=== PATIENT | female | born 1995 | race Caucasian/White ===

== ENCOUNTER 2019-09-28 14:49 | Outpatient (CLI) | payer BC, SELFPAY ==
--- NOTE | ~2019-09-28 | US_ITS ---
EXAMINATION: US OB follow up DATE: 09/28/2019 15:21 INDICATION: with uncertain dates. TECHNIQUE: Real-time ultrasound of the pelvis was performed. COMPARISON: None. FINDINGS: There is a single living fetus in breech presentation. The placenta is anterior, 6.6 cm from the cer vix. heart rate is 141 beats per minute (bpm). The amniotic fluid volume is subjectively normal . The following biometric data were obtained: Biparietal diameter (BPD): 4.5 cm; head circumference (HC): 16.3 cm; abdominal circumference (AC): 14 .0 cm; femur length (FL): 2.9 cm. These measurements are concordant. Estimated weight is 277 g +/- 42 g. As single measurements, these parameters are each equal to the following estimated gestational ages: BPD: 19 weeks 4 days. HC: 19 weeks 0 days. AC: 19 weeks 2 days. FL: 18 weeks 6 days. estimated gestational age based solely on measurements from this exam is 19 weeks 1 days +/- 1 weeks 2 days. IMPRESSION: 1. Single living fetus in breech presentation. 2. Estimated weight is 277 g +/- 42 g with estimated date of delivery of 02/21/2020. Reviewed, dictated and finalized at location A.
== END 2019-09-28 14:50 | disposition home or self-care (01) ==
PROVIDERS: Visit Provider Student in an Organized Health Care Education/Training Program
DX: N91.2 Amenorrhea, unspecified (principal); Z33.1 Pregnant state, incidental
CPT/HCPCS: 76816

== ENCOUNTER 2019-09-29 15:48 | Outpatient (CLI) | payer BC, SELFPAY ==
[2019-09-29 16:11] LABS: Basophils Percent Auto 0.4 % (0.2-1.2); Eosinophils Absolute Auto 0.2 K/mm3 (0-0.3); Eosinophils Percent Auto 1.8 % (0-4.4); Hematocrit 37.6 % (37.0-47.0); Hemoglobin 12.7 g/dL (12.0-15.0); Immature Granulocyte Absolute 0.09 K/mm3 (0.00-0.031); Immature Granulocyte Percent A 0.8 % (0-0.5); Lymphocytes Absolute Auto 2.14 K/mm3 (0.9-3.2); Lymphocytes Percent Auto 19.9 % (18.3-44.2); Mean Corpuscular HGB Conc 33.8 g/dl (32-36); Mean Corpuscular Hemoglobin 29.8 pg (26-34); Mean Corpuscular Volume 88.3 fl (80-100); Mean Platelet Volume 10.8 fl (7.4-10.4); Monocytes Absolute Auto 0.5 K/mm3 (0.1-0.6); Monocytes Percent Auto 4.8 % (2.6-8.5); Neutrophils Absolute Auto 7.8 K/mm3 (1.3-6.7); Neutrophils Percent Auto 72.3 % (45.5-73.1); Platelet Count Result 202 k/mm3 (150-375); Red Blood Count 4.26 M/mm3 (4.2-5.4); Red Cell Distribution Width 12.8 % (11.5-14.5); White Blood Count 10.8 K/mm3 (4.5-10.0)
[2019-09-29 16:13] LABS: Add Urine Microscopic? NO; Appearance Urine Clear (Clear); Bilirubin Urine Negative (Negative); Blood Urine Negative (Negative); Color Urine Colorless (Yellow); Glucose Urine UA Negative (Negative); Ketones Urine Negative (Negative); Leukocyte Esterase Ur Negative LEU/UL (NEGATIVE); Nitrate Urine Negative (Negative); Protein Urine Negative (Negative); Urobilinogen Urine Negative mg/dL (<2.0)
[2019-09-29 16:15] LABS: Specific Grav Ur 1.002 (1.001-1.035)
[2019-09-29 17:34] LABS: HIV 1/2 Ab P24 Ag Result Negative (Negative); Hepatitis C Virus Antibody Negative (Negative)
[2019-09-29 18:02] LABS: Rubella IgG Antibody 15.9 IU/ML
[2019-09-29 18:06] LABS: Vitamin D 25 Hydroxy 53.1 ng/mL
[2019-09-30 08:42] LABS: Rapid Plasma Reagin Non-Reactive (NonReactive)
[2019-09-30 12:25] LABS: Hepatitis B Surface Antigen Negative (Negative)
[2019-10-04 19:40] LABS: Hematocrit 38.4 % (35.0-45.0); MCH 30.4 pg (27.0-33.0); MCV 89.7 FL (80.0-100.0); RDW 13.3 % (11.0-15.0); Red Blood Cell Count 4.28 Mill/uL (3.80-5.10)
== END 2019-09-29 15:49 | disposition home or self-care (01) ==
PROVIDERS: PCP Student in an Organized Health Care Education/Training Program; Visit Provider Student in an Organized Health Care Education/Training Program
DX: Z34.90 Encounter for supervision of normal pregnancy, unspecified, unspecified trimester (principal)
CPT/HCPCS: 36415; 81003; 81220; 82306; 83021; 84443; 85025; 86592; 86703; 86762; 86787; 86803; 87086; 87340; G0432

== ENCOUNTER 2019-12-15 14:34 | Outpatient (CLI) | payer BC, SELFPAY ==
[2019-12-15 15:45] LABS: Basophils Absolute Auto 0.1 K/mm3 (0.0-0.1); Basophils Percent Auto 0.4 % (0.2-1.2); Eosinophils Absolute Auto 0.2 K/mm3 (0-0.3); Eosinophils Percent Auto 1.5 % (0-4.4); Hematocrit 36.1 % (37.0-47.0); Hemoglobin 12.3 g/dL (12.0-15.0); Immature Granulocyte Absolute 0.25 K/mm3 (0.00-0.031); Immature Granulocyte Percent A 2.2 % (0-0.5); Lymphocytes Absolute Auto 1.85 K/mm3 (0.9-3.2); Lymphocytes Percent Auto 16.4 % (18.3-44.2); Mean Corpuscular HGB Conc 34.1 g/dl (32-36); Mean Corpuscular Hemoglobin 30.5 pg (26-34); Mean Corpuscular Volume 89.6 fl (80-100); Monocytes Absolute Auto 0.5 K/mm3 (0.1-0.6); Monocytes Percent Auto 4.7 % (2.6-8.5); Neutrophils Absolute Auto 8.4 K/mm3 (1.3-6.7); Neutrophils Percent Auto 74.8 % (45.5-73.1); Platelet Count Result 196 k/mm3 (150-375); Red Blood Count 4.03 M/mm3 (4.2-5.4); Red Cell Distribution Width 13.2 % (11.5-14.5); White Blood Count 11.3 K/mm3 (4.5-10.0)
[2019-12-15 15:56] LABS: Glucose 1 Hour PP 50gm Dose 166 mg/dL
== END 2019-12-15 14:35 | disposition home or self-care (01) ==
PROVIDERS: PCP Student in an Organized Health Care Education/Training Program; Visit Provider Student in an Organized Health Care Education/Training Program
DX: Z34.02 Encounter for supervision of normal first pregnancy, second trimester (principal)
CPT/HCPCS: 36415; 82947; 85025; 86850; 86900; 86901

== ENCOUNTER 2019-12-22 08:57 | Outpatient (CLI) | payer BC, SELFPAY ==
[2019-12-22 09:57] LABS: Glucose Fasting Gestational 78 mg/dL (>/=95)
[2019-12-22 11:23] LABS: Glucose 1 Hour Gest 135 mg/dL (>/=180)
[2019-12-22 12:31] LABS: Glucose 2 Hour Gest 148 mg/dL (>/= 155)
[2019-12-22 13:46] LABS: Glucose 3 Hour Gest 73 mg/dL (>/=140)
== END 2019-12-22 08:58 | disposition home or self-care (01) ==
LOC: ANHLAB 08:58
PROVIDERS: PCP Student in an Organized Health Care Education/Training Program; Visit Provider Student in an Organized Health Care Education/Training Program
DX: R73.09 Other abnormal glucose (principal)
CPT/HCPCS: 36415; 82951; 82952

== ENCOUNTER 2020-01-06 12:57 | Outpatient (CLI) | payer BC, SELFPAY ==
[2020-01-06 13:21] LABS: Basophils Absolute Auto 0.1 K/mm3 (0.0-0.1); Basophils Percent Auto 0.5 % (0.2-1.2); Eosinophils Absolute Auto 0.2 K/mm3 (0-0.3); Eosinophils Percent Auto 1.6 % (0-4.4); Hematocrit 37.6 % (37.0-47.0); Immature Granulocyte Absolute 0.28 K/mm3 (0.00-0.031); Immature Granulocyte Percent A 2.3 % (0-0.5); Lymphocytes Absolute Auto 2.16 K/mm3 (0.9-3.2); Lymphocytes Percent Auto 17.6 % (18.3-44.2); Mean Corpuscular HGB Conc 34.6 g/dl (32-36); Mean Corpuscular Hemoglobin 30.6 pg (26-34); Mean Corpuscular Volume 88.5 fl (80-100); Mean Platelet Volume 10.4 fl (7.4-10.4); Monocytes Absolute Auto 0.7 K/mm3 (0.1-0.6); Monocytes Percent Auto 5.3 % (2.6-8.5); Neutrophils Absolute Auto 8.9 K/mm3 (1.3-6.7); Neutrophils Percent Auto 72.7 % (45.5-73.1); Platelet Count Result 188 k/mm3 (150-375); Red Blood Count 4.25 M/mm3 (4.2-5.4); Red Cell Distribution Width 13.1 % (11.5-14.5); White Blood Count 12.3 K/mm3 (4.5-10.0)
[2020-01-06 14:11] LABS: HIV 1/2 Ab P24 Ag Result Negative (Negative)
[2020-01-09 07:20] LABS: Rapid Plasma Reagin Non-Reactive (NonReactive)
== END 2020-01-06 12:58 | disposition home or self-care (01) ==
PROVIDERS: PCP Student in an Organized Health Care Education/Training Program; Visit Provider Student in an Organized Health Care Education/Training Program
DX: Z34.90 Encounter for supervision of normal pregnancy, unspecified, unspecified trimester (principal)
CPT/HCPCS: 36415; 85025; 86592; 86703; G0432

== ENCOUNTER 2020-02-24 12:16 | Outpatient (RCR) | payer BC, SELFPAY ==
[2020-02-21 14:33] VITALS: BP 118/73; PULSE 78
--- NOTE | 2020-02-21 15:36 | PC.NURSE ---
Dr. Mendoza notified of Ultrasound results and NST.
[2020-02-22 15:14] VITALS: BP 121/86; PULSE 84
--- NOTE | ~2020-02-24 | US_ITS ---
EXAMINATION: US OB follow up w BPP DATE: 02/21/2020 15:07 INDICATION: Postdates. TECHNIQUE: Real-time pelvic ultrasound was performed. COMPARISON: Ultrasound 09/28/2019 FINDINGS: There is a single living fetus in vertex presentation. The placenta is anterior. heart rate is 126 beats per minute (bpm). The amniotic fluid index was 14.5 cm, which is normal. The following biometric data were obtained: Head circumference (HC): 34.8 cm; abdominal circumference (AC): 35.5 cm; femur length (FL): 7.7 cm. These measurements are concordant. Estimated weight is 3802 g +/- 570 g, which correlates with 66th percentile when 02/21/20 is us ed as estimated date of delivery. As single measurements, these parameters are each equal to the following estimated gestational ages: HC: 40 weeks 3 days. AC: 39 weeks 3 days. FL: 39 weeks 4 days. estimated gestational age based solely on measurements from this exam is 39 weeks 6 days +/- 2 weeks 6 days. Biophysical profile performed by the technologist: breathing (30 sec sustained breathing in 30 minutes): 2 out of 2 movement (3 gross body movements in 30 minutes): 2 out of 2 tone (one episode of andjacw-ofrrjtdql-scxyycz limb movement): 2 out of 2 Amniotic fluid pocket (2 cm): 2 out of 2 Total score: 8 out of 8 IMPRESSION: 1. Single living fetus in vertex presentation. 2. Estimated weight is 3802 g +/- 570 g, which correlates with 66th percentile when 02/21/20 i s used as estimated date of delivery. This date was set by ultrasound on 09/28/2019. 3. Biophysical profile 8 out of 8. Reviewed, dictated and finalized at location A. IMPRESSION: 1. Single living fetus in vertex presentation. 2. Estimated weight is 3802 g +/- 570 g, which correlates with 66th perc entile when 02/21/20 is used as estimated date of delivery. This date was set b y ultrasound on 09/28/2019. 3. Biophysical profile 8 out of 8.
[2020-02-24 12:43] VITALS: BP 119/77
== END 2020-02-29 12:54 | disposition home or self-care (01) ==
LOC: ANHOBOP 12:16
PROVIDERS: Visit Provider Student in an Organized Health Care Education/Training Program
DX: O48.0 Post-term pregnancy (principal); Z3A.40 40 weeks gestation of pregnancy
CPT/HCPCS: 59025; 76816; 76819

== ENCOUNTER 2020-02-27 15:47 | Inpatient (IN) | payer BC, SELFPAY ==
[2020-02-27] VITALS (7 sets, daily range): BP systolic 109–138; BP diastolic 65–91; PULSE 67–80; TEMP 36.6–37; BMI 31.1
--- NOTE | 2020-02-27 15:47 | LDADM ---
This patient, Geovanna Long, was admitted to Labor/Delivery/Recovery 107 on 02/27/20 at 15:47. Plans for labor, pain management and were discussed with patient. Patient/family oriented to hospital policies and general routines including ID bracelet, bed and alarms, visiting hours, pain management, procedures, bathroom and other care routines, personal items, smoking policy, room service/diet and guest tray routines, infant security routines, and visiting hours. Patient/Family are encouraged to report perceived risks to care and to ask questions if they do not understand what they are told or what they should do. See OBIX for further documentation.
[2020-02-27 16:44] LABS: Basophils Absolute Auto 0.1 K/mm3 (0.0-0.1); Basophils Percent Auto 0.5 % (0.2-1.2); Eosinophils Absolute Auto 0.2 K/mm3 (0-0.3); Eosinophils Percent Auto 1.5 % (0-4.4); Hematocrit 39.5 % (37.0-47.0); Hemoglobin 13.4 g/dL (12.0-15.0); Immature Granulocyte Absolute 0.23 K/mm3 (0.00-0.031); Immature Granulocyte Percent A 1.8 % (0-0.5); Lymphocytes Percent Auto 14.5 % (18.3-44.2); Mean Corpuscular HGB Conc 33.9 g/dl (32-36); Mean Corpuscular Hemoglobin 30.5 pg (26-34); Mean Corpuscular Volume 89.8 fl (80-100); Mean Platelet Volume 11.4 fl (7.4-10.4); Monocytes Absolute Auto 0.9 K/mm3 (0.1-0.6); Monocytes Percent Auto 7.2 % (2.6-8.5); Neutrophils Absolute Auto 9.3 K/mm3 (1.3-6.7); Neutrophils Percent Auto 74.5 % (45.5-73.1); Platelet Count Result 186 k/mm3 (150-375); Red Cell Distribution Width 13.4 % (11.5-14.5); White Blood Count 12.4 K/mm3 (4.5-10.0)
[2020-02-27] MEDS: DINOPROSTONE 10 MG VAG INSERT VAGINAL (16:45)
[2020-02-28] VITALS (102 sets, daily range): BP systolic 107–145; BP diastolic 68–105; PULSE 59–104; RESP 16–20; TEMP 36.8–37.4; O2SAT 96–100
[2020-02-28] MEDS: CALCIUM CARBONATE (TUMS) 500 MG (200 MG ELEMENTAL) PO (05:04)
[2020-02-28] MEDS: LACTATED RINGERS 1,000 ML 125 ML IV CONT ×3 (05:05→11:23)
[2020-02-28] MEDS: OXYTOCIN 30 UNITS/NS 500 ML 30 UNITS/500 ML BAG 6 UNITS IV CONT (05:05)
[2020-02-28 06:59] LABS: Rapid Plasma Reagin Non-Reactive (NonReactive)
--- NOTE | 2020-02-28 08:38 | WPDANESEPP ---
Anes - Eval Pre Procedure Procedure: Labor Epidural Date/Time: 02/28/20 08:38 Surgeon: Reji Preop Diagnosis: Labor Pain Pre Op Diagnosis: iol Patient Data Age: 24 Gender: F Height: 5 ft 8 in Weight: 93 kg Last Vital Signs Temp 36.9 C 02/28/20 06:31 Pulse 93 02/28/20 08:36 BP 134/80 02/28/20 08:36 Pulse Ox 98 02/28/20 08:36 Allergies Allergy/AdvReac Type Severity Reaction Status Date / Time No Known Allergies Allergy Verified 02/22/20 14:01 Home Medications Medication Instructions Recorded Confirmed Type calcium citrate 250 mg PO DAILY 09/20/19 02/27/20 History vits 75-iron 28 mg-folic 1 pkg PO DAILY 09/20/19 02/27/20 History acid 800 mcg-omega-3 oral combo pack Laboratory Tests 02/27/20 02/27/20 02/27/20 16:30 16:30 16:30 WBC 12.4 K/mm3 H K/mm3 (4.5-10.0) RBC 4.40 M/mm3 M/mm3 (4.2-5.4) Hgb 13.4 g/dL g/dL (12.0-15.0) Hct 39.5 % % (37.0-47.0) MCV 89.8 fl fl (80-100) MCH 30.5 pg pg (26-34) MCHC 33.9 g/dl g/dl (32-36) RDW 13.4 % % (11.5-14.5) Plt Count 186 k/mm3 k/mm3 (150-375) MPV 11.4 fl H fl (7.4-10.4) Immature Gran % (Auto) 1.8 % H % (0-0.5) Neut % (Auto) 74.5 % H % (45.5-73.1) Lymph % (Auto) 14.5 % L % (18.3-44.2) Ford % (Auto) 7.2 % % (2.6-8.5) Eos % (Auto) 1.5 % % (0-4.4) Baso % (Auto) 0.5 % % (0.2-1.2) Lymph # (Auto) 1.80 K/mm3 K/mm3 (0.9-3.2) Ford # (Auto) 0.9 K/mm3 H K/mm3 (0.1-0.6) Eos # (Auto) 0.2 K/mm3 K/mm3 (0-0.3) Baso # (Auto) 0.1 K/mm3 K/mm3 (0.0-0.1) Abs Immat Gran (auto) 0.23 K/mm3 H K/mm3 (0.00-0.031) Absolute Neuts (auto) 9.3 K/mm3 H K/mm3 (1.3-6.7) Absolute Nucleated RBC 0.0 K/mm3 K/mm3 (0.0-0.012) Nucleated RBC % 0.0 % % (0.0-0.2) RPR Non-reactive (NonReactive) Blood Type A Positive Antibody Screen Negative : gestational age (RASHID 02/21/20) Patient hx anesthesia problems: none Family hx anesthesia problems: none PMFSH Past Medical History Medical History Broken humerus Surgical History Surgical History [place] teeth removed Family History Family History Mother Breast cancer Grandparent Breast cancer Acute myocardial infarction Social History Social History Smoking status: Never smoker Second hand tobacco smoke exposure: No Alcohol intake: never Substance use: never Gender identity (if verbalized by the patient): Female Spiritual care concerns: No Exam Day of Procedure 02/28/20 08:38 Patient weight: normal Heart: regular rate and rhythm Lungs: normal air movement Airway: Mallampati scale class II Neurological: alert and oriented
--- NOTE | 2020-02-28 08:52 | PM.IMHP ---
H&P: HPI History of Present Illness Date/Time: 02/28/20 08:52 Patient is a 24-year-old last menstrual period April 27, 2019 currently 40 weeks 6 days gestation with an estimated due date of 02/21/2020. Patient presents for scheduled elective induction of labor at term. Patient is dated by an ultrasound on 09/29/2027 at 19 weeks gestation. patient reports feeling well. Reports occasional contractions. Denies any vaginal bleeding or leakage of fluid. Reports good movement. Chief complaint: iol Narrative: Geovanna Long is a 24 year old female Review of Systems Review of Systems: All systems reviewed & are unremarkable except as noted in HPI and below Constitutional: Constitutional: Reports as per HPI, Reports no additional constitutional complaints, Denies chills, Denies fever(s), Denies headache(s) and Denies night sweats Eyes: Eyes: Reports as per HPI and Reports no additional eye complaints ENT: Reports system reviewed and no additional complaints, except as documented, Reports as per HPI, Reports Normal hearing present and Denies headache(s) Cardiovascular: Cardiovascular: Reports as per HPI, Reports no additional cardiovascular complaints, Denies chest pain and Denies dyspnea Respiratory: Respiratory: Reports as per HPI, Reports no additional respiratory complaints, Denies cough and Denies dyspnea Gastrointestinal: Gastrointestinal: Reports as per HPI, Reports no additional gastrointestinal complaints, Denies abdominal pain, Denies change in bowel habits, Denies change in stool character, Denies nausea and Denies vomiting Genitourinary: Genitourinary: Reports no additional female genitourinary complaints, Reports as per HPI, Denies abnormal vaginal bleeding, Denies genital lesions, Denies hot flashes, Denies dyspareunia, Denies pelvic pain, Denies sexual dysfunction, Denies urinary incontinence, Denies vaginal discharge, Denies vaginal dryness and Denies vaginal odor Musculoskeletal: Musculoskeletal: Reports no additional musculoskeletal complaints and Reports as per HPI Integumentary/Breasts: Skin/Breast: Reports system reviewed and no additional complaints, except as docu, Reports as per HPI, Denies breast pain and Denies nipple discharge Neurologic: Reports system reviewed and no additional complaints, except as documented, Reports as per HPI, Reports Normal hearing present and Denies headache(s) Psychiatric: Psychiatric: Reports no additional psychiatric complaints, Reports as per HPI, Denies anxiety and Denies depression Endocrine: Endocrine: Reports no additional endocrine complaints and Reports as per HPI Hematologic/Lymphatic: Hematologic/Lymphatic: Reports no additional hematologic/lymphatic complaints and Reports as per HPI Allergic/Immunologic: Allergic/Immunologic: Reports no additional allergic/immunologic complaints and Reports as per HPI PMFSH Past Medical History Medical History (Updated 02/28/20 @ 09:01 by Jackie Mendoza MD) Broken humerus Surgical History Surgical History [place] teeth removed Family History Family History Mother Breast cancer Grandparent Breast cancer Acute myocardial infarction Social History Social History Smoking status: Never smoker Second hand tobacco smoke exposure: No Alcohol intake: never Substance use: never Gender identity (if verbalized by the patient): Female Spiritual care concerns: No Meds Home Medications and Allergies Home Medications Medication Instructions Recorded Confirmed Type calcium citrate 250 mg PO DAILY 09/20/19 02/27/20 History vits 75-iron 28 mg-folic 1 pkg PO DAILY 09/20/19 02/27/20 History acid 800 mcg-omega-3 oral combo pack Allergies Allergy/AdvReac Type Severity Reaction Status Date / Time No Known Allergies Allergy Verifi
--- NOTE | 2020-02-28 09:02 | WPDHPUPDATE1 ---
History and Physical Update Update Date/Time: 02/28/20 09:02 History and Physical has been reviewed, including an updated exam of the patient. There are NO changes in the patient's condition. Risks, benefits, and alternatives have been discussed and questions answered. Patient agrees to proceed with procedure.
[2020-02-28] MEDS: OXYTOCIN 30 UNITS/NS 500 ML 30 UNITS/500 ML BAG 125 UNITS IV CONT (13:45)
--- NOTE | 2020-02-28 15:22 | PM.OBPRVD ---
OB - Delivery Note Procedure Delivery date: 02/28/20 Procedure: The patient is a 24-year-old now who presented to Labor and delivery for scheduled elective induction of labor on the evening of 02/27/20 at 40 weeks 6 days gestation. Patient was admitted to Labor and delivery and induction of labor was begun with Cervidil. Patient's initial cervical exam was 1 cm dilated. Cervidil remained in place for 12 hours after which time it was removed. Cervical exam was 3 cm dilated. Pitocin was started for labor augmentation. Patient became increasingly uncomfortable and requested an epidural for pain management which was placed without difficulty. Artificial rupture membranes was performed at 8:39 a.m. Clear amniotic fluid was noted. Cervical exam at this time was 4/60/-2. Pitocin was continued and patient made progressive cervical change. Patient was found to be fully dilated at 12:35 p.m. She was encouraged to push and found to be pushing well. Patient was prepped and draped for delivery. At 1:12 p.m., patient delivered infant's head atraumatically and without difficulty in ANGEL presentation. Occiput restituted to maternal right side. A nuchal cord x1 was noted and easily reduced. With subsequent push, the 's neck, shoulders, and rest of body were delivered without difficulty. Infant was crying spontaneously. Infant's nose and mouth were suctioned with bulb suction. Infant was placed on maternal abdomen and care was assumed by awaiting nursing staff. Delayed cord clamp was performed for approximately 60 seconds. The cord was clamped and cut. A segment of cord was collected for cord gases. Cord blood was also obtained. The placenta was delivered spontaneously and intact. Uterine fundus noted to be firm with bimanual massage. On inspection brisk bleeding was noted. A third-degree perineal laceration was noted as well as an extension to the right vaginal wall. Bilateral labial lacerations were also visualized. All lacerations were repaired in usual fashion with 2-0 and 3-0 Vicryl. Excellent reapproximation and hemostasis was noted. Straight catheterization was performed with approximately 30 cc of clear urine obtained. A rectal exam was also performed and was unremarkable. The patient was cleansed and dried. The infant was a live-born male , weighing 8 lb 0 oz, Apgars 8 and 8. Estimated blood loss for entire delivery was 494 cc. events: Labor Induction Intrapartal events: None Induction method: per cervidil protocol Delivery augmentation: rupture of membranes and pitocin Delivery monitor: external FHT and external uterine Route of delivery: Laceration Description: Vaginal - 1st Degree (right vaginal wall) and Labial (bilateral) Delivery repair: vicryl (2-0 and 3-0) Specimen: Yes (cord gases and cord blood) Estimated blood loss (mL): 494 Anesthesia type: Epidural Disposition: floor Complications: No immediate complications Baby Date of : 02/28/20 Time of : 13:12 Weeks of gestation at delivery: 41 Infant gender: Male Weight (pounds): 8 Weight (ounces): 0 presentation: vertex position: Right Occiput Anterior Placenta delivery description: Spontaneous cord vessel description: 3 Vessels and Nuchal Cord (x1) score one minute: 8 score five minutes: 8
[2020-02-28] MEDS: BENZOCAINE 20% AER SPR (*SP) 56 GM CAN 1 SPRAY TOPICAL (15:41)
[2020-02-28] MEDS: WITCH HAZEL 40 PADS 1 PAD TOPICAL (15:41)
--- NOTE | 2020-02-28 16:38 | PC.NURSE ---
Patient transferred to post room #291 per wheelchair from labor and delivery. Support person present. Oriented to unit, room, information board, rooming in, admission packet and security measures. Patient verbalizes understanding.
[2020-02-28] MEDS: IBUPROFEN 600 MG TABLET PO ×2 (16:57→22:35)
[2020-02-28] MEDS: DOCUSATE SODIUM 100 MG CAPSULE PO (16:57)
[2020-02-29] MEDS: IBUPROFEN 600 MG TABLET PO ×2 (04:57→11:22)
[2020-02-29 06:01] LABS: Hematocrit 33.4 % (37.0-47.0); Hemoglobin 11.2 g/dL (12.0-15.0)
--- NOTE | 2020-02-29 07:39 | P.PNOB_ITS ---
OB - PN: Subj Subjective Date/time seen: 02/29/20 07:39 Patient comments: no complaints, pain well controlled and other (Lochia similar to menses) [place] baby status: doing well OB - PN: Obj Data Labs CBC & Chem 7: 02/29/20 05:02 Labs: Laboratory Results - last 24 hr 02/29/20 05:02 Hgb 11.2 L Hct 33.4 L OB - PN A/P Plan day: 1 (s/p vaginal delivery, doing well) Plan: routine care Time Spent With Patient Time: Total time spent is greater than 50% in coordination of care (as d ocumented) at patient's floor/unit and/or counseling patient: Exam Const: General: no acute distress GI: Inspection: other (Fundus firm and nontender at umbilicus) GI Palp: Yes Soft to palpation and No Tenderness to palpation present (GI) Extrem: General: no edema
[2020-02-29 08:25] VITALS: BP 92/58; PULSE 87; RESP 18; TEMP 36.5
[2020-02-29] MEDS: DOCUSATE SODIUM 100 MG CAPSULE PO (08:54)
[2020-02-29] MEDS: MULTIVIT/MIN/PREN/FOL AC/IRON TABLET 1 TAB PO (08:54)
--- NOTE | 2020-02-29 09:40 | PC.NURSE ---
Mother called out for assist with feeding. Consulted with patient, mother reports had a good first feeding and then has been sleepy since. Mother has bottle fed last several feedings. Mother states she is unsure if she wishes to pump and bottle feed or put infant to breast. Discussed stimulation and milk supply. Suggested mother initiate pumping if she chooses to pump and bottle feed. Mother states she would like to attempt to breast. Reviewed infant feeding cues, frequencies, duration of feedings, feeding elimination flow sheet, and signs of adequate intake. Demonstrated stimulation techniques to wake for feeding. Assisted with infant to breast. Reviewed positioning/alignment in cross cradle, holding breast in U hold and guided asymmetrical latch on. Infant was able to latch correctly. nursed sleepily, with bursts of steady draws followed with long pausing and occasional swallowing noted. Reviewed signs of a correct latch, effective nursing and suck swallow ratio. was able to maintain latch without discomfort to mother. Suggested to stimulate while feeding to keep awake and nursing effectively for increased intake and to assist with maintaining deep latch. Demonstrated how to adjust latch more deeply while feeding. Feeding options discussed, mother chooses to supplement if breastfeeds and will begin pumping. Mother has her own Medela double electric pump. Instructions given on breast pump care and usage, pumping schedule, nipple care, and collection and storage of breast milk. Encouraged [id number], breast massage and manual expression to stimulate supply. Assessed patient for correct flange size, placement and draw. Patient verbalizes and demonstrates understanding of instructions. Instructed mother to call out for RN assistance if she is unable to latch for feeding or she has discomfort with nursing. Instructed feeding should be initiated three hours from start of last feeding or if feeding cues are noted before. Mother voiced understanding of information shared.
--- NOTE | 2020-02-29 11:30 | PC.NURSE ---
Patient viewed the discharge video Mother & Baby Care, The First Two Weeks . Patient was given the opportunity and encouraged to ask questions. Patient verbalized understanding of information shared and has been given the mother/baby guide for home reference.
--- NOTE | 2020-02-29 12:45 | PC.NURSE ---
Mother called out for assist with feeding. Reviewed feeding cues, frequencies, duration of feedings, feeding elimination flow sheet, and signs of adequate intake. Demonstrated stimulation techniques to wake infant for feeding. Assisted with to breast. Reviewed positioning/alignment in cross cradle, holding breast in U hold and guided asymmetrical latch on. Infant was able to latch correctly. Infant nursed with eager bursts of steady draws followed with long pausing and occasional swallowing noted. more awake with good bursts. Reviewed signs of a correct latch, effective nursing and suck swallow ratio. was able to maintain latch without discomfort to mother. Suggested to stimulate while feeding to keep infant awake and nursing effectively for increased intake and to assist with maintaining deep latch. Demonstrated how to adjust latch more deeply while feeding. Feeding options discussed, mother chooses to supplement if infant breastfeeds and will begin pumping. Mother is planning to discharge later this evening. Feeding plan is to put infant to breast each feeding, then supplement 20-25 mls and pump. Discussed infant is not effectively well enough to discontinue supplementation. Discussed when may be ready to increase supplement of EBM/formula and signs when he may be ready to decrease/discontinue supplement. Advised not to discontinue until seen by follow up RN or ICP. Mother is able to independently latch infant with appropriate positioning/alignment. She is feeding as required and waking to feed if needed. Infant is currently meeting outcomes for weight, output, jaundice and feeding frequencies. Mother states she feels confident to continue effective at home. Reviewed transition to breast milk, signs of adequate intake, and engorgement/relief. Instructed to call ICP if intake/output less than required. Reviewed regular medications mother is taking. Information provided per Tami. Reviewed community resources on the [employer] [employer] [facility] website and in the Mom/Baby guide. Information on outpatient services provided. Mother has no further questions at this time.
[2020-02-29] MEDS: ACETAMINOPHEN 325 MG TABLET 650 MG PO (15:58)
[2020-03-01 09:31] VITALS: BP 120/75; PULSE 77; RESP 20; TEMP 36.9; O2SAT 98
--- NOTE | 2020-04-06 11:53 | PM.OBDSVD ---
DS: Admitting Diagnosis Admitting Diagnosis Admitting Diagnosis: iol DS: Discharge Diagnosis Discharge Diagnosis (1) Normal vaginal delivery: Code(s): O80 - Encounter for full-term uncomplicated delivery Status: Acute OB - DS: Summary OB Procedures : None OB Procedures Intrapartum: Spontaneous Vag Delivery OB Procedures: : None Peripartum Data Infant Delivery Method: Natural Vaginal Laceration Description: Perineal - 3rd Degree, Vaginal - 1st Degree and Labial complications: none Status at Discharge Functional status at discharge: independent ambulation Overall status at discharge: patient is progressing back to baseline Time Spent with Patient Time attestation: Total time spent providing and/or coordinating discharge services: Time spent: Less than 30 minutes Discharge Plan Discharge Attending physician on discharge: Jackie Mendoza Discharging Clinician: Bobbi Morgan Patient Disposition: Home, Self-Care Activity: may shower and pelvic rest Diet: regular Discharge Instructions: Education: Mom and Baby Guide and Preeclampsia Handout Given to: Mother Follow-Up: Call your delivering provider's office for an appointment to be seen in: 1 Week Mom and baby should come to the [facility] for the follow-up appointment. Appointment Date/Time: March 01, 2020 at 9:00 am What to expect at your follow-up visit: Physical Assessment Call [phone] if you are unable to keep your appointment time. BREAST CARE: * Wear a snug supportive bra. * For engorgement discomfort: Breast Feeding: * Apply warm moist washcloths * Express milk as needed to relieve engorgement * Wear loose clothing Bottle Feeding: * May apply ice packs * For sore nipples: * Identify correct latch-on * Apply warm moist washcloths before and after nursing * Air dry nipples after nursing * May apply Lansinoh cream to nipples EPISIOTOMY/PERINEAL CARE: * Until bleeding stops, use your jamilah bottle after urinating * Change your pad frequently throughout the day * You may take sitz baths several times a day (fill your bathtub with warm water and soak for 20 minutes.) Do NOT bathe in the water * No tub baths until seen by your physician - You may shower ACTIVITY: * Rest as much as possible. * Do not exercise or lift anything heavier than your baby (such as laundry or other children.) * Avoid stairs or driving as much as possible. * Do not put anything into the vagina. No douching, tampons, or sexual activity until seen by physician. NOTIFY PHYSICIAN IF YOU HAVE ANY QUESTIONS OR IF ANY OF THE FOLLOWING SYMPTOMS OCCUR: * If your episiotomy becomes red, swollen, or more painful than what you have experienced in the hospital. * If your vaginal bleeding becomes foul smelling. * If your vaginal bleeding becomes more heavy than a period or if your bleeding changes from pink to bright red. However, you may pass an occasional walnut-sized clot once or twice for the first week . * If you experience a sharp, shooting pain in you calves. * If you discover a hard, reddened area on your breast or if you experience flu-like symptoms. DIET: * Eat regular, well-balanced meals. * Drink plenty of fluids daily. If , drink to thirst. Stand Alone Forms: General Discharge Information Follow-up/Referrals: Jackie Mendoza MD [Physician] - 1 Week Discharge Medications: Continued One A Day Women's DHA 28 mg iron- 800 mcg combo pack 1 pkg PO DAILY RF: 0 calcium citrate 250 mg calcium tablet 250 mg PO DAILY RF: 0 No Action Slynd 4 mg (28) tablet 4 mg PO DAILY 24 Days Qty: 3 RF: 0 Date of admission: 02/27/20 15:47 Primary Care Provider: PHYSICIAN,PIGMENT PRESSER Admitting Provider: Jackie Mendoza Attending physician on admission: Bobbi Morgan
== END 2020-02-29 17:21 | disposition home or self-care (01) | DRG 768 ==
LOC: ANHLDR 02-28 14:06 → ANHOB2 02-29 07:40 → ANHLDR 03-02 06:49 → ANHOB2 03-02 06:49
PROVIDERS: Admitting Provider Student in an Organized Health Care Education/Training Program; Visit Provider Obstetrics & Gynecology
DX: O69.81X0 Labor and delivery complicated by cord around neck, without compression, not applicable or unspecified (principal); Z37.0 Single live birth; O71.4 Obstetric high vaginal laceration alone; Z3A.40 40 weeks gestation of pregnancy
CPT/HCPCS: 36415; 85014; 85018; 85025; 86592; 86850; 86900; 86901; A9270; J2590; J2795; J7120

== ENCOUNTER 2024-07-23 16:03 | Emergency (ER) | payer OTHER, SELFPAY ==
[2024-07-23] VITALS (13 sets, daily range): BP systolic 131–135; BP diastolic 87–97; PULSE 54–73; RESP 9–18; TEMP 36.8; O2SAT 96–100
--- NOTE | ~2024-07-23 | XR_ITS ---
CHEST RADIOGRAPH, PA AND LATERAL CLINICAL HISTORY: chest pain . COMPARISON: None available TECHNIQUE: PA and lateral views of the chest. FINDINGS The cardiomediastinal silhouette is unremarkable. The lungs are clear. Visualized osseous structures and soft tissues are unremarkable. IMPRESSION: No focal infiltrate or effusion. Reviewed, dictated and finalized at location A.
--- OUTSIDE RECORDS SUMMARY | 2024-07-23 16:05 | XMS_ITS | Referral Summary ---
Author Organization [facility] Medical Office Building B Address [address] [place] [address] Care Team Providers Care Edger Runner Name Role Phone No, Physician Primary Care Provider [phone] Allergies No known active allergies Medications vit 45-aawf-demwv-d edgar 27mg iron- 800 mcg-250 mg capsule Take 1 capsule by mouth daily Active calcium acetate,phospha t bind, (PHOSLO) 667 mg tablet Take 2 tablets (1,334 mg total) by mouth 3 (three) times a day with meals Active ibuprofen (ADVIL,MOTRIN) 600 mg tabletIndicatio ns:Cramps Take 1 tablet (600 mg total) by mouth every 6 (six) hours 30 tablet 3 Active Additional Information Patient not taking.Reported on 08/18/2022 Active Problems Problem Noted Date Diagnosed Date care and examination 08/18/2022 Assessment & Plan (09/29/2022 12:40 PM CDT): Continuing to do well. [facility] due [facility]. Assessment & Plan (08/18/2022 1:51 PM CDT): Doing well Generalized anxiety disorder 01/21/2022 Overview (01/21/2022): Doing well on zoloft Assessment & Plan (01/21/2022 11:48 AM CDT): Doing well on zoloft Family history of breast cancer 01/21/2022 Overview (01/21/2022): Bert Nash doesn't want to know gene status Assessment & Plan (01/21/2022 11:50 AM CDT): [facility] Resolved Problems Problem Noted Date Diagnosed Date Resolved Date Breech presentation, single or unspecified fetus 08/11/2022 08/18/2022 Breech presentation, no version 07/14/2022 08/18/2022 Overview (07/14/2022): Added automatically from request for surgery [id number] Polyhydramnios in third trim naima, not applicable or unspecified fetus 05/19/2022 08/19/19 Overview (05/19/2022): 05/19/2022 AFI29.5cm. 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 No other cardiac abnormalities of been identified. No sign of cardiac decompensation. transition is anticipated to be normal. Follow-up echocardiogram is recommended. Supervision of normal 03/25/2022 08/18/2022 Immunizations Immunization Administration Dates Next Due Influenza, Unspecified 03/25/2022(Deferred: Yuko ent Refused) Tdap 06/09/2022 Social History Tobacco Use Types Packs/Day Years Used Date Smoking Tobacco: Never Tobacco Cessation:Counseling Given: Not Answered Humiliation, Afraid, Rape, and Kick questionnair e Answer Date Recorded Within the last year, have y ou been afraid of your partner or ex-partner? No 01/21/2022 Within the last year, have y ou been humiliated or emotionally abused in other ways by your partner or ex-partner? No Within the last year, have y ou been kicked, hit, slapped, or otherwise physically hurt by your partner or ex-partner? No 01/21/2022 Within the last year, have y ou been raped or forced to have any kind of sexual activity by your partner or ex-partner? No 01/21/2022 Social Connection and Isolat ion Panel [NHANES] Answer Date Recorded In a typical week, how many times do you talk on the phone with family, friends, or neighbors? More than three times a week 08/11/2022 How often do you get togethe r with friends or relatives? Once a week 08/11/2022 How often do you attend chur ch or denominational services? Never 08/11/2022 Do you belong to any clubs o r organizations such as latter day groups, unions, fraternal or athletic groups, or school groups? No 08/11/2022 How often do you attend meet ings of the clubs or organizations you belong to? Never 08/11/2022 Are you , , di vorced, , never , or living with a partner? Living with partner 08/11/2022 AUDIT-C Answer Date Recorded Q1: How often do you have a drink containing alcohol? Never 08/11/2022 Q2: How many drinks containi ng alcohol do you have on a typical day when you are drinking? Patient does not drink Q3: How often do you have si x or more drinks on one occasion? Never 08/11/2022 Overall Financial Resource Strain (CARDIA) Answe r Date Recorded How hard is it for you to pa y for the very basics like food, housing, medical care, and heating? Not hard at all 08/11/2022 PHQ-2 Answer Date Recorded PHQ-2 Total Score (If total score is 3 or more points, staff should administer the PHQ-9) 0 08/11/2022 [facility] - Occupational Stress Questionnaire Answer Date Recorded Do you feel stress - tense, restless, nervous, or anxious, or unable to sleep at night because your mind is troubled all the time - these days? Not at all 08/11/2022 Exercise Vital Sign Answer Date Recorde d On average, how many days pe r week do you engage in moderate to strenuous exercise (like a brisk walk)? 0 days Minutes of Exercise per Session Not on file 08/11/2022 Hunger Vital Sign Answer Date Recorded Within the past 12 months, y ou worried that your food would run out before you got the money to buy more. Never true 08/12/19 23 Within the past 12 months, t he food you bought just didn't last and you didn't have money to get more. Never true 08/11/2022 PRAPARE - Transportation Answer Date Re corded In the past 12 months, has l ack of transportation kept you from medical appointments or from getting medications? No 07/26 In the past 12 months, has l ack of transportation kept you from meetings, work, or from getting things needed for daily living? No 08/11/2022 Housing Stability Vital Sign Answer Zeeshan e Recorded In the last 12 months, was t here a time when you were not able to pay the mortgage or rent on time? No 08/11/2022 In the last 12 months, how many places have you lived? 1 08/11/2022 In the last 12 months, was t here a time when you did not have a steady place to sleep or slept in a correction (including now)? No 08/11/2022 [place] Depression Scale Answer Date Recorded [place] Depression Scale Total 0 09/29/2022 The thought of harming myself has occurred to me . Never 09/29/2022 Personal Safety Answer Date Recorded Have you ever been in or are you currently in a harmful physical or emotional relationship or is someone making you feel afraid or unsafe? Denies 08/11/2022 Comments No Sex and Gender Information Value Date Recorded Sex Assigned at Not on file Legal Sex Female 12:01 PM CDT Gender Identity Not on file Sexual Orientation Not on file Last Filed Vital Signs Vital Sign Reading Time Taken Comments Blood Pressure 126/88 09/29/2022 11:45 AM CDT Pulse 57 09/29/2022 11:45 AM CDT Temperature 36.6 C (97.8 F) 08/12/2022 10:35 PM CDT Respiratory Rate 17 08/12/2022 10:35 PM CDT Oxygen Saturation 99% 08/11/2022 8:01 PM CDT Inhaled Oxygen Concentration - - Weight 82.6 kg (182 lb) 09/29/2022 11:45 AM CDT Height 172.7 cm (5' 8 ) 07/21/2022 1:32 PM CDT Body Mass Index 27.67 07/21/2022 1:32 PM CDT Plan of Treatment Not on file Procedures Procedure Name Priority Date/Time Associated Diagnosis Comments HEPATITIS C ANTIBODY Routine 02/03/2022 9:38 AM CDT Encounter for supervision of other normal in first trimester 10 weeks gestation of PAP WITH REFLEX TO HIGH RISK HPV Routine 01/21/2022 12:15 PM CDT Encounter for supervision of other normal in first trimester 10 weeks gestation of from Last 3 Months or Most Recently Relevant to Health Maintenance Results * Hepatitis C antibody (02/03/2022 9:38 AM CDT) Hep C Ab Nonreactive Nonreactive [facility] Comment: Interpretive Data Nonreactive: Antibodies to HCV not detected. Does NOT exclude the possibility of recent exposure to HCV. Equivocal: Equivocal for HCV antibodies. Supplemental molecular testing will be automatically performed to determine infection status in accordance with current CDC screening recommendations. Reactive: Positive for HCV antibodies. This may represent current or past HCV infection. Supplemental molecular testing will be automatically performed to determine current infection status in accordance with current CDC screening recommendations. Interpretive data was last revised on 2019. Blood 02/03/2022 9:38 AM CDT 02/03/2022 3:10 PM CDT Denise Mary MD LAB MICROBIOLOGY - GENERAL ORDERABLES Final Result [facility] [id number] Department of Laboratories [place], [place] [id number] * Pap with reflex to High Risk HPV (01/21/2022 12:15 PM CDT) CLINICAL INFORMATION: Marco Antonio Lo Comment: LMP [facility] Comment:10/28/2021 Previous Pap [facility] Comment:NONE GIVEN Prev. Bx [facility] Comment:NONE GIVEN SOURCE: [facility] Comment:Cervix, Endocervix Pap, specimen adequacy Marco Antonio Lo Comment: Satisfactory for evaluation. Endocervical/transformation zone component present. HPV interp Marco Antonio Lo Comment:Negative for intraep ithelial lesion or malignancy. COMMENTS Marco Antonio Lo Comment: This Pap test has been evaluated with computer assisted technology. Visual Training Aide Ed Horton Comment: MVB, CT(ASCP) CT Screening Location: [place] [address] [address] [address] Comment Marco Antonio Lo Comment: EXPLANATORY NOTE: The Pap is a screening test for cervical cancer. It is not a diagnostic test and is subject to false negative and false positive results. It is most reliable when a satisfactory sample, regularly obtained, is submitted with relevant clinical findings and history, and when the Pap result is evaluated along with historic and current clinical information. Thin prep 01/21/2022 12:1 5 PM CDT 01/22/2022 5:13 AM CDT Denise Mary MD LAB CYTOLOGY ORDERA BLES Final Result [facility] [address] [address] [phone] from Last 3 Months or Most Recently Relevant to Health Maintenance Insurance [place] [facility] Advance Directives For more information, please contact: [phone] * Full Code (Latest Code Status on File) Date Activated Date Inactivated Comments 08/11/2022 8:56 AM 08/13/2022 5:47 PM * Full Code Date Activated Date Inactivated Comments 08/11/2022 6:12 AM 08/11/2022 8:56 AM Full CPR in case of cardiopulmonary arrest Care Teams Edger Runner Relationship Specialty Start Date End Date No, Physician PCP - General 01/03/22
--- OUTSIDE RECORDS SUMMARY | 2024-07-23 16:05 | XMS_ITS | Clinical Summary ---
Author Organization [facility] Address [address] [place] [address] Phone Care Team Providers Care Garment Fitter Name Role Phone Jackie Mendoza MD Primary Care Provider [phone] Social History Tobacco Use Types Packs/Day Years Used Date Smoking Tobacco: Never Assessed Comments Unknown Sex and Gender Information Value Date Recorded Sex Assigned at Not on file Legal Sex Female 10:32 AM CDT Gender Identity Not on file Sexual Orientation Not on file Plan of Treatment Health Maintenance Due Date Last Done Comments DTAP/TDAP/TD VACCINES (1 - Tdap) 07/14/2014 HEPATITIS B VACCINES (1 of 3 - 19+ 3-dose series) 07/14/2014 CERVICAL CANCER SCREENING 07/14/2016 PAP SMEAR 07/14/2016 PAP SMEAR 07/14/2016 INFLUENZA VACCINE (#1) 2023 HPV VACCINES Aged Out No longer eligi ble based on patient's age to complete this topic PNEUMOCOCCAL VACCINE 0-49 YEARS Aged Out No longer eligible based on patient's age to complete this topic Insurance [facility] BLUE ACCESS/TRUE BLUE PPO Care Teams Garment Fitter Relationship Specialty Start Date End Date Jackie Mendoza MD [address] [facility] [address] [place] [address] PCP - General Obstetrics and Gynecology 10/05/19
--- OUTSIDE RECORDS SUMMARY | 2024-07-23 16:05 | XMS_ITS | Clinical Summary ---
Author Organization [facility] Medical Office Building B Address [address] [place] [address] Care Team Providers Care Senior Project Coordinator Name Role Phone No, Physician Primary Care Provider [phone] Allergies No known active allergies Medications vit 87-vlnj-wmjub-d edgar 27mg iron- 800 mcg-250 mg capsule [...] (07/14/2022): Added automatically from request for surgery [id number] Polyhydramnios in third trim naima, not applicable [...] Unspecified 03/25/2022(Deferred: Yuko ent Refused) Tdap 06/09/2022 Surgical History Surgery Date Site/Laterality Comments ARM WOUND REPAIR / CLOSURE Family History Medical History Relation Name Comments Heart disease Father's Brother Hypertension Father's Brother Breast cancer Mother doesnt want to know about gene testing. Heart disease Paternal Grandfather Hypertension Paternal Grandfather Cancer Neg Hx no colon or regional training manager cancer 01/21/22 cmt Relation Name Status Comments Father's Brother Mother Paternal Grandfather Social History Tobacco Use Types Packs/Day Years [...] week 08/11/2022 How often do you attend [facility] or quaker services? Never 08/11/2022 Do you belong to any clubs o r organizations such as evangelical groups, unions, fraternal or athletic groups, or [...] staff should administer the PHQ-9) 0 08/11/2022 [facility] - Occupational Stress [...] place to sleep or slept in a intermediate (including now)? No 08/11/2022 [place] Depression Scale Answer Date Recorded [place] Depression Scale Total 0 09/29/2022 The thought [...] on file Sexual Orientation Not on file Obstetrics History Para Term AB IAB SAB Ectopic Multiple Livin g Live Births 2 2 2 0 2 2 Date Outcome GA Total Labor Labor/2nd/3rd Weight Sex Type Anes PTL Emy A1 A5 Name Clin 0 Term 41w 0d 3.629 kg (8 lb) M Vag-S pont Epidur al Livin g Complications:None 2022 Term 39w 1d 0h 03m 0h 03m 3.861 kg (8 lb 8.2 oz) M C-Sec tion Spinal N Livin g 8 9 YASIR LOYOLA , Leopoldo ramirez MD Complications:None Delivery Location:This [facility] ([facility] L AND D PROCEDURE) Comments No HTN or DM. No ptl. Last Filed Vital Signs Vital Sign Reading [...] 07/21/2022 1:32 PM CDT Plan of Treatment Health Maintenance Due Date Last Done Comments Varicella Vaccines (1 of 2 - 13+ 2-dose series) 07/14/2008 Hepatitis B Screening 07/14/2013 Regular Well Visit/Exam 18-64 07/14/2013 Cervical Cancer Screening 01/21/2023 01/21/2022 Depression Screening 09/30/2023 09/29/2022, 07/14/2022, 07/14/2022, Additional history exists Influenza Vaccine (#1) 2023 DTaP/Tdap/Td Vaccine (2 - Td or Tdap) 06/09/2032 06/09/2022 Hepatitis C Screening Completed 02/03/2022 HPV Vaccines Aged Out No longer eligi ble based on patient's age to complete this topic Pneumococcal vaccine <65 Aged Out No longer eligible based on patient's age to complete this topic Procedures Procedure Name Priority Date/Time Associated Diagnosis [...] 9:38 AM CDT 02/03/2022 3:10 PM CDT Densie Mary MD LAB MICROBIOLOGY - GENERAL ORDERABLES Final Result [facility] [address] [address] Department [place] [address] * Pap with reflex to High Risk HPV (01/21/2022 12:15 PM CDT) Pathologist [facility] CLINICAL INFORMATION: Marco Antonio Lo Comment: LMP Marco Antonio Lo Comment:10/28/2021 Previous Pap [facility] Comment:NONE GIVEN Prev. Bx Marco Antonio Lo Comment:NONE GIVEN SOURCE: Marco Antonio Lo Comment:Cervix, Endocervix Pap, specimen adequacy Marco Antonio Lo Comment: Satisfactory for evaluation. Endocervical/transformation zone component present. HPV interp Marco Antonio Lo Comment:Negative for intraep ithelial lesion or malignancy. COMMENTS Marco Antonio Lo Comment: This Pap test has been evaluated with computer assisted technology. Floral Manager Ed pires [facility] K[facility]alia Lo Comment: MVB, CT(ASCP) CT Screening Location: [place] [address] [address] [address] Comment Marco Antonio Lo Comment: EXPLANATORY NOTE: [...] 5 PM CDT 01/22/2022 5:13 AM CDT us Denise Mary MD LAB CYTOLOGY ORDERA BLES Final Result [facility] [address] [address] [phone] from Last 3 Months or Most Recently Relevant to Health Maintenance Insurance [place] [employer] [id number] [place] [facility] Member Subscriber Plan / Payer (Ef fective 2021-Present) Name:Geovanna Loyola Relation to Subscriber:Self Name:Geovanna Loyola Payer ID:[id number] Group ID:Not on file Type:OTHER [employer] Group Address: [address] [id number] Advance Directives For more information, please contact: [phone] * Full Code (Latest Code Status on File) Date Activated Date Inactivated Comments 08/11/2022 8:56 AM 08/13/2022 5:47 PM * Full Code Date Activated Date Inactivated Comments 08/11/2022 6:12 AM 08/11/2022 8:56 AM Full CPR in case of cardiopulmonary arrest Care Teams Senior Project Coordinator Relationship Specialty Start Date End Date No, Physician PCP - General 01/03/22
--- NOTE | 2024-07-23 16:06 | ECG_ITS ---
Test Date: 2024-07-23 16:13:58 Measurements Intervals [place] Rate: 75 P: 77 SC: 108 QRS: 74 QRSD: 93 T: 54 QT: 399 QTc: 446 Interpretive Statements SINUS RHYTHM WITH SHORT SC INTERVAL NONSPECIFIC ST AND T-WAVE ABNORMALITY ABNORMAL ECG No previous ECG available for comparison Electronically Signed On 07-24-2024 07:36:42 CDT by Randall Garza M.D.
--- OUTSIDE RECORDS SUMMARY | 2024-07-23 17:00 | XMS_ITS | Referral Summary ---
Author Organization [facility] Medical Office Building B Address [address] [place] [address] Care Team Providers Care Telemarketing Agent Name Role Phone No, Physician Primary Care Provider [phone] Allergies No known active allergies Medications vit 17-rhjc-izfiw-d edgar 27mg iron- 800 mcg-250 mg capsule [...] (07/14/2022): Added automatically from request for surgery [id number] Polyhydramnios in third trim naima, not applicable [...] often do you attend chur ch or mormon services? Never 08/11/2022 Do you belong to any clubs o r organizations such as bahai groups, unions, fraternal or athletic groups, or [...] staff should administer the PHQ-9) 0 08/11/2022 [facility] - Occupational [...] place to sleep or slept in a prison (including now)? No 08/11/2022 [place] Depression Scale Answer Date Recorded [place] Depression Scale Total 0 09/29/2022 The thought [...] MICROBIOLOGY - GENERAL ORDERABLES Final Result [facility] [address] [address] Department of Laboratories [place], [place] [id number] * Pap with reflex to High Risk [...] has been evaluated with computer assisted technology. Checkering Machine Adjuster Ed Horton Comment: MVB, CT(ASCP) CT Screening Location: [place] [address] [address] [address] Comment Marco Antonio Lo Comment: EXPLANATORY NOTE: [...] MD LAB CYTOLOGY ORDERA BLES Final Result [facility] [address] [address] [phone] from Last 3 Months or Most Recently Relevant to Health Maintenance Insurance [place] [facility] Advance Directives For more information, please contact: [phone] * Full Code (Latest Code Status on File) Date Activated Date Inactivated Comments 08/11/2022 8:56 AM 08/13/2022 5:47 PM * Full Code Date Activated Date Inactivated Comments 08/11/2022 6:12 AM 08/11/2022 8:56 AM Full CPR in case of cardiopulmonary arrest Care Teams Telemarketing Agent Relationship Specialty Start Date End Date No, Physician PCP - General 01/03/22
--- OUTSIDE RECORDS SUMMARY | 2024-07-23 17:00 | XMS_ITS | Clinical Summary ---
Author Organization [facility] Medical Office Building B Address [address] [place] [address] Care Team Providers Care Marketing Finance Manager Name Role Phone No, Physician Primary Care Provider [phone] Allergies No known active allergies Medications vit 13-fblk-zpvyr-d edgar 27mg iron- 800 mcg-250 mg capsule [...] (07/14/2022): Added automatically from request for surgery [id number] Polyhydramnios in third trim naima, not applicable [...] Grandfather Cancer Neg Hx no colon or dusting and brushing machine operator cancer 01/21/22 cmt Relation Name Status Comments [...] week 08/11/2022 How often do you attend [facility] or episcopal services? Never 08/11/2022 Do you belong to any clubs o r organizations such as taoism groups, unions, fraternal or athletic groups, or [...] staff should administer the PHQ-9) 0 08/11/2022 [facility] Occupat ional Health - [...] place to sleep or slept in a usp (including now)? No 08/11/2022 [place] Depression Scale Answer Date Recorded [place] Depression Scale Total 0 09/29/2022 The thought [...] , Leopoldo ramirez MD Complications:None Delivery Location:This [facility] ([facility] L AND D PROCEDURE) Comments No [...] MICROBIOLOGY - GENERAL ORDERABLES Final Result [facility] [address] [address] Department [place] [address] * Pap with reflex to High Risk HPV (01/21/2022 12:15 PM CDT) Pathologist [facility] CLINICAL INFORMATION: Marco Antonio Lo Comment: LMP [...] has been evaluated with computer assisted technology. Acting Professor Ed pires [facility] Lo Comment: MVB, CT(ASCP) CT Screening Location: [place] [address] [address] [address] Comment Marco Antonio Lo Comment: EXPLANATORY NOTE: [...] MD LAB CYTOLOGY ORDERA BLES Final Result [facility] [address] [address] [phone] from Last 3 Months or Most Recently Relevant to Health Maintenance Insurance [place] [employer] [employer] [address] [place] [facility] Member Subscriber Plan / Payer (Ef fective 2021-Present) Name:Geovanna Loyola Relation to Subscriber:Self Name:Geovanna Loyola Payer ID:[id number] Group ID:Not on file Type:OTHER ArticleAlley Address: [address] [id number] Advance Directives For more information, please contact: [phone] * Full Code (Latest Code Status on File) Date Activated Date Inactivated Comments 08/11/2022 8:56 AM 08/13/2022 5:47 PM * Full Code Date Activated Date Inactivated Comments 08/11/2022 6:12 AM 08/11/2022 8:56 AM Full CPR in case of cardiopulmonary arrest Care Teams Marketing Finance Manager Relationship Specialty Start Date End Date No, Physician PCP - General 01/03/22
--- OUTSIDE RECORDS SUMMARY | 2024-07-23 17:00 | XMS_ITS | Clinical Summary ---
Author Organization [facility] Address [address] [place] [address] Phone Care Team Providers Care Crime Prevention Worker Name Role Phone Jackie Mendoza MD Primary Care Provider [phone] Social History Tobacco Use Types Packs/Day Years [...] patient's age to complete this topic Insurance [facility] BLUE ACCESS/TRUE BLUE PPO Care Teams Crime Prevention Worker Relationship Specialty Start Date End Date Jackie Mendoza MD [address] [facility] [address] [place] [address] PCP - General Obstetrics and Gynecology 10/05/19
[2024-07-23 17:13] LABS: Basophils Absolute Auto 0.1 K/mm3 (0.0-0.1); Basophils Percent Auto 0.7 % (0.2-1.2); Eosinophils Absolute Auto 0.2 K/mm3 (0-0.3); Eosinophils Percent Auto 1.9 % (0-4.4); Hematocrit 42.6 % (37.0-47.0); Hemoglobin 14.9 g/dL (12.0-15.0); Immature Granulocyte Absolute 0.02 K/mm3 (0.00-0.031); Immature Granulocyte Percent A 0.2 % (0-0.5); Lymphocytes Percent Auto 23.5 % (18.3-44.2); Mean Corpuscular Hemoglobin 31.3 pg (26-34); Mean Corpuscular Volume 89.5 fl (80-100); Mean Platelet Volume 11.3 fl (7.4-10.4); Monocytes Absolute Auto 0.6 K/mm3 (0.1-0.6); Monocytes Percent Auto 7.4 % (2.6-8.5); Neutrophils Absolute Auto 5.4 K/mm3 (1.3-6.7); Neutrophils Percent Auto 66.3 % (45.5-73.1); Platelet Count Result 203 k/mm3 (150-375); Red Blood Count 4.76 M/mm3 (4.2-5.4); Red Cell Distribution Width 13.2 % (11.5-14.5); White Blood Count 8.1 K/mm3 (4.5-10.0)
[2024-07-23 17:24] LABS: Alanine Aminotransferase 33 U/L (6-35); Albumin Level 4.6 g/dL (3.5-5.1); Alkaline Phosphatase 82 U/L (38-126); Anion Gap 14 mmol/L (4-12); Aspartate Amino Transferase 29 U/L (14-36); Bilirubin,Total 1.6 mg/dL (0.2-1.3); Blood Urea Nitrogen 14 mg/dL (7-17); Carbon Dioxide 19 mmol/L (22-30); Chloride 107 mmol/L (98-107); Estimated CRCL calculation 88 ml/min; Estimated Glomerular Filt Rate > 60; Glucose 93 mg/dL (65-110); Lipase 87 U/L (23-300); Potassium 3.6 mmol/L (3.4-5.0); Sodium 140 mmol/L (137-145)
[2024-07-23] MEDS: MECLIZINE HCL 25 MG TABLET PO (17:33)
[2024-07-23] MEDS: SODIUM CHLORIDE 0.9% IV 1,000 ML 999 ML IV CONT (17:34)
[2024-07-23] MEDS: KETOROLAC 30 MG/ML VIAL (*BKC) IV PUSH (17:34)
[2024-07-23 17:35] LABS: Troponin I < 0.012 ng/mL (0.000-0.034)
--- NOTE | 2024-07-23 17:41 | ED_ITS ---
HPI - Chest Pain General Chief Complaint: Chest Pain Stated Complaint: HEART ATTACK OR SOMETHING Time Seen by Provider: 07/23/24 16:41 History of Present Illness HPI narrative: Patient is a 29-year-old female who presents ER with reports of dizziness. Intermittent over last couple of days. Makes her feel off balance like she might pass out she gets warm sweaty. Occasional nausea with this. Is happen to her couple times. Today she developed some achiness early left shoulder/chest that made her worried. This is shortly after having another episode. She reports she then was breathing fast and had tingling around her lips and fingers. Has some mild anxiety but reports she is not feel like she is having anxiety attack. Reports she has a grandfather who in his 50s from heart disease but her father has no heart issues and neither does her mother. Patient is on oral contraceptives. No pain with deep breath. No hemoptysis. Related Data Home Medications ?Medication ?Instructions ?Recorded ?Confirmed ?Last Taken ?Type vits 75-iron 28 mg-folic 1 pkg PO DAILY 09/20/19 10/02/20 Unknown History acid 800 mcg-omega-3 oral combo pack (One A Day Women's DHA) Allergies Allergy/AdvReac Type Severity Reaction Status Date / Time No Known Allergies Allergy Verified 10/02/20 11:13 Review of Systems 2 Review of Systems: All systems reviewed & are unremarkable except as noted in HPI and below Constitutional: Constitutional: Reports no additional constitutional complaints ENT: Reports system reviewed and no additional complaints, except as documented Cardiovascular: Cardiovascular: Reports no additional cardiovascular complaints Respiratory: Respiratory: Reports no additional respiratory complaints Musculoskeletal: Musculoskeletal: Reports no additional musculoskeletal complaints [facility] Past Medical History Medical History Broken humerus History of vaginal delivery x 1 Surgical History Surgical History History of surgery on arm [place] teeth removed Family History Family History Mother Breast cancer Grandparent Breast cancer Acute myocardial infarction Social History Social History Smoking status: Never smoker Second hand tobacco smoke exposure: No Alcohol intake: never Substance use: never Gender identity (if verbalized by the patient): Female Spiritual care concerns: No Exam 2 Narrative: GENERAL: Well-appearing, well-nourished, and in no acute distress. HEAD: Normocephalic, atraumatic. EYES: PERRL and EOMI. ENT: Mucous membranes moist. TMs normal bilaterally. CHEST: Clear to auscultation. No respiratory distress. HEART: Regular rate and rhythm. Normal peripheral pulses. ABDOMEN: Soft, nontender, nondistended. EXTREMITIES: Normal range of motion. No edema. SKIN: Warm, dry, no rash. NEURO: Alert and oriented x3. PSYCH: Normal mood and affect. Course Vital Signs Vital signs: Vital Signs Temperature 98.2 F 07/23/24 16:33 Pulse Rate 69 07/23/24 16:33 Respiratory Rate 16 07/23/24 16:33 Blood Pressure 131/87 07/23/24 16:33 Pulse Oximetry 100 07/23/24 16:33 Temperature 98.2 F 07/23/24 16:33 Pulse Rate 67 07/23/24 18:00 Respiratory Rate 10 L 07/23/24 18:00 Blood Pressure 135/97 H 07/23/24 17:36 Pulse Oximetry 100 07/23/24 18:00 Oxygen Delivery Room Air 07/23/24 17:20 MDM - Chest Pain Lab Data 07/23/24 17:08 07/23/24 17:08 Labs: Lab Results 07/23/24 07/23/24 Range/Units 17:08 17:29 WBC 8.1 (4.5-10.0) K/mm3 RBC 4.76 (4.2-5.4) M/mm3 Hgb 14.9 D (12.0-15.0) g/dL Hct 42.6 (37.0-47.0) % MCV 89.5 (80-100) fl MCH 31.3 (26-34) pg MCHC 35.0 (32-36) g/dl RDW 13.2 (11.5-14.5) % Plt Count 203 (150-375) k/mm3 MPV 11.3 H (7.4-10.4) fl Immature Gran % (Auto) 0.2 (0-0.5) % Neut % (Auto) 66.3 (45.5-73.1) % Lymph % (Auto) 23.5 (18.3-44.2) % Towns % (Auto) 7.4 (2.6-8.5) % Eos % (Auto) 1.9 (0-4.4) % Baso % (Auto) 0.7 (0.2-1.2) % Lymph # (Auto) 1.90 (0.9-3.2) K/mm3 Towns # (Auto) 0.6 (0.1-0.6) K/mm3 Eos # (Auto) 0.2 (0-0.3) K/mm3 Baso # (Auto) 0.1 (0.0-0.1) K/mm3 Abs Immat Gran (auto) 0.02 (0.00-0.031) K/mm3 Absolute Neuts (auto) 5.4 (1.3-6.7) K/mm3 Absolute Nucleated RBC 0.000 (0.0-0.012) K/mm3 Nucleated RBC % 0.0 (0.0-0.2) % PT 13.4 (11.1-14.7) Seconds INR 1.0 APTT 26.4 (22.3-36.8) Seconds D-Dimer < 0.27 (<0.48) ug/mL Sodium 140 (137-145) mmol/L Potassium 3.6 (3.4-5.0) mmol/L Chloride 107 (98-107) mmol/L Carbon Dioxide 19 L (22-30) mmol/L Anion Gap 14 H (4-12) mmol/L BUN 14 (7-17) mg/dL Creatinine 0.88 (0.7-1.0) mg/dL Estim Creat Clear Calc 88 ml/min Estimated GFR > 60 (59 - ) Glucose 93 (65-110) mg/dL Calcium 10.0 (8.4-10.2) mg/dL Total Bilirubin 1.6 H (0.2-1.3) mg/dL AST 29 (14-36) U/L ALT 33 (6-35) U/L Alkaline Phosphatase 82 (38-126) U/L Troponin I < 0.012 (0.000-0.034) ng/mL Total Protein 8.0 (6.3-8.2) g/dL Albumin 4.6 (3.5-5.1) g/dL Lipase 87 (23-300) U/L Imaging Data Radiologist's impression: ITS Impressions Chest X-Ray 07/23/24 17:40 IMPRESSION: No focal infiltrate or effusion. ECG Data EKG #1: ECG completion date: 07/23/24 ECG completion time: 16:13 EKG Interpretation: normal rate (75), sinus rhythm, non-specific ST changes, normal QRS, normal QT and NL axis Discharge Plan Discharge Clinical Impression: Chest pain, Vertigo Patient Disposition: Home, Self-Care Condition: Stable Instructions: Chest Pain (ED), Vertigo (ED) Additional Instructions: Please return to the emergency department if you develop severe and persistent chest pain, difficulty breathing, dizziness, leg swelling or if you are coughing up blood as these can be signs of a medical emergency. Please call your doctor for a follow up appointment to determine the need for further testing. Patient Language: Syriac Prescriptions: New meclizine 25 mg tablet 25 mg PO TID PRN (Reason: dizziness) Qty: 14 0RF naproxen 375 mg tablet 375 mg PO BID Qty: 14 0RF No Action One A Day Women's DHA 28 mg iron- 800 mcg combo pack 1 pkg PO DAILY Slynd 4 mg (28) tablet 4 mg PO DAILY 24 Days Qty: 3 2RF norethindrone-e.estradiol-iron 1 mg-20 mcg (24)/75 mg (4) tablet 1 tablet PO DAILY Qty: 84 2RF Follow-up/Referrals: PHYSICIAN NOT ON STAFF,NONSTAFF [Primary Care Provider] - Quality HEART score for chest pain patients History: slightly suspicious ECG: normal Age: < or = to 45 years Risk factors: no risk factors known Troponin: < or = to 1x normal limit Heart score: 0
[2024-07-23 18:28] LABS: Prothrombin Time 13.4 Seconds (11.1-14.7)
[2024-07-23 18:29] LABS: Partial Thromboplastin Time 26.4 Seconds (22.3-36.8)
[2024-07-23 18:51] LABS: D Dimer < 0.27 ug/mL (<0.48)
== END 2024-07-23 19:03 | disposition home or self-care (01) ==
PROVIDERS: Student in an Organized Health Care Education/Training Program; Emergency Provider Emergency Medicine
DX: R42 Dizziness and giddiness (principal); R07.9 Chest pain, unspecified; Z79.3 Long term (current) use of hormonal contraceptives; R94.31 Abnormal electrocardiogram [ECG] [EKG]
CPT/HCPCS: 36415; 71046; 80053; 83690; 84484; 85025; 85380; 85610; 85730; 93005; 96361; 96374; 99284; A9270; J1885; J7030